=== PATIENT | male | born 1965 | race Caucasian/White ===

== ENCOUNTER 2019-06-01 14:16 | Emergency (ER) | payer OTHER ==
--- NOTE | 2019-06-01 15:02 | EDM.PDOC ---
ED HPI GENERAL MEDICAL PROBLEM - General Chief Complaint: Head Injury Stated Complaint: HEAD INJURY Time Seen by Provider: 06/01/19 15:02 Source of Information: Reports: Patient History Limitations: Reports: No Limitations - History of Present Illness INITIAL COMMENTS - FREE TEXT/NARRATIVE: HISTORY AND PHYSICAL: History of present illness: Patient is a 54-year-old male presents to the ED of head injury. He states that yesterday he was getting into his pickup when he slipped and fell backwards hitting the back of his head. He did not lose consciousness but states it is "pretty close to passing out." He denies any vomiting or visual changes or blurriness. He reports that he has been dizzy today. He also notes some pain in his ribs. He is uncertain if he had been but states they're painful today. He denies any anterior chest pain or shortness of breath. Review of systems: As per history of present illness and below otherwise all systems reviewed and negative. Past medical history: As per history of present illness and as reviewed below otherwise noncontributory. Surgical history: As per history of present illness and as reviewed below otherwise noncontributory. Social history: No reported history of drug or alcohol abuse. Family history: As per history of present illness and as reviewed below otherwise noncontributory. Physical exam: General: Patient sitting comfortably in no acute distress and nontoxic appearing HEENT: Atraumatic, normocephalic, pupils reactive, negative for conjunctival pallor or scleral icterus, mucous membranes moist, throat clear, neck supple, nontender, trachea midline. No meningeal signs. Lungs: Clear to auscultation, breath sounds equal bilaterally, chest nontender. Heart: S1S2, regular, negative for clicks, rubs, or overt murmur. Abdomen: Soft, nondistended, nontender. Negative for masses or hepatosplenomegaly. Negative for costovertebral tenderness. No rigidity, rebound , guarding. Pelvis: Stable nontender. Genitourinary: Deferred. Rectal: Deferred. Extremities: Atraumatic, negative for cords or calf pain. Neurovascular unremarkable. Neuro: Awake, alert, oriented. Cranial nerves II through XII unremarkable. Cerebellum unremarkable. Motor and sensory unremarkable throughout. Exam nonfocal. Notes: Diagnostics: Head CT, x-ray of the chest Therapeutics: none Prescriptions: none Impression: Head injury, concussion Plan: Tylenol or motrin as needed Follow up with primary care provider Return to ED as needed as discussed Definitive disposition and diagnosis as appropriate pending reevaluation and review of above. - Related Data Allergies Allergy/AdvReac Type Severity Reaction Status Date / Time shellfish derived Allergy Vomiting Verified 06/01/19 15:02 Home Meds: Home Meds Losartan [Cozaar] 100 mg PO DAILY 09/15/18 [History] Omeprazole 20 mg PO DAILY 09/15/18 [History] atorvaSTATin Calcium [Atorvastatin Calcium] 40 mg PO DAILY 09/15/18 [History] metFORMIN HCl [Metformin HCl] 1,000 mg PO DAILY 09/15/18 [History] glipiZIDE [Glucotrol] 5 mg PO DAILY 06/01/19 [History] Past Medical History HEENT History: Reports: Impaired Vision Other HEENT History: wears glasses Cardiovascular History: Reports: High Cholesterol, Hypertension Respiratory History: Reports: Asthma Endocrine/Metabolic History: Reports: Diabetes, Type II - Past Surgical History HEENT Surgical History: Reports: Adenoidectomy, Tonsillectomy GI Surgical History: Reports: Appendectomy, Colon, Colonoscopy, Colostomy ED ROS GENERAL - Review of Systems Review Of Systems: ROS reveals no pertinent complaints other than HPI. ED EXAM, HEAD INJURY - Physical Exam Exam: See Below (see dictation) Course - Vital Signs Last Recorded V/S: Last Vital Signs Temp 97.0 F 06/01/19 15:04 Pulse 77 06/01/19 15:04 Resp 18 06/01/19 15:04 BP 165/105 H 06/01/19 15:04 Pulse Ox 96 06/01/19 15:04 Departure - Departure Time of Disposition: 16:25 Disposition: Home, Self-Care 01 Condition: Good Clinical Impression: Head injury, Concussion - Discharge Information Referrals: PCP,Unknown [Primary Care Provider] - Forms: ED Department Discharge Additional Instructions: The following information is given to patients seen in the emergency department who are being discharged to home. This information is to outline your options for follow-up care. We provide all patients seen in our emergency department with a follow-up referral. The need for follow-up, as well as the timing and circumstances, are variable depending upon the specifics of your emergency department visit. If you don't have a primary care physician on staff, we will provide you with a referral. We always advise you to contact your personal physician following an emergency department visit to inform them of the circumstance of the visit and for follow-up with them and/or the need for any referrals to a consulting specialist. The emergency department will also refer you to a specialist when appropriate. This referral assures that you have the opportunity for follow-up care with a specialist. All of these measure are taken in an effort to provide you with optimal care, which includes your follow-up. Under all circumstances we always encourage you to contact your private physician who remains a resource for coordinating your care. When calling for follow-up care, please make the office aware that this follow-up is from your recent emergency room visit. If for any reason you are refused follow-up, please contact the Emergency Department at and asked to speak to the emergency department charge nurse. Primary Care [address] [place] [id number] [address] Tylenol or motrin as needed Follow up with primary care provider Return to ED as needed as discussed
--- NOTE | 2019-06-01 16:17 | CR ---
INDICATION: Chest wall pain after fall. COMPARISON: None available. TECHNIQUE: The right ribs were examined with AP, shallow oblique along with AP and oblique inferior spot views along with a PA view of the chest for a total of 5 views. FINDINGS: There is no sign of abnormality of the ribs, with no sign of fracture or destructive lesion. The lungs are clear and the heart and mediastinum are normal in appearance. IMPRESSION: Normal right ribs and PA chest. Dictated by Nilo Welch MD @ Jun 01 2019 4:10PM Signed by Dr. Nilo Welch @ Jun 01 2019 4:16PM
--- NOTE | 2019-06-01 16:23 | CT ---
INDICATION: Injury. Dizziness TECHNIQUE: CT head without contrast. COMPARISON: None available FINDINGS: The ventricles and sulci are within normal limits for the patient`s age. There is no mass effect or midline shift. There is no loss of hernandez-white differentiation. There is no evidence of an acute intracranial hemorrhage. No acute calvarial fracture is seen. There is mild superior posterior scalp swelling. There is paranasal sinus mucosal thickening. The right mastoid air cells are hypoplastic. The left mastoid air cells are clear. The visualized orbits are within limits. IMPRESSION: No evidence of an acute intracranial hemorrhage, mass effect or loss of hernandez-white differentiation. Paranasal sinus disease. Dictated by Shaun Bob MD @ 06/01/2019 4:18:38 PM Please note that all CT scans at this facility use dose modulation, iterative reconstruction, and/or weight-based dosing when appropriate to reduce radiation dose to as low as reasonably achievable. Dictated by: Shaun Bob MD @ 06/01/2019 16:21:49 (Electronically Signed)
== END 2019-06-01 16:41 | disposition home or self-care (01) ==
LOC: MW.ED 14:16
DX: S06.0X0A Concussion without loss of consciousness, initial encounter (principal); E11.9 Type 2 diabetes mellitus without complications; I10 Essential (primary) hypertension; E78.00 Pure hypercholesterolemia, unspecified; Z91.013 Allergy to seafood; Z79.899 Other long term (current) drug therapy; Z79.84 Long term (current) use of oral hypoglycemic drugs; W01.0XXA Fall on same level from slipping, tripping and stumbling without subsequent striking against object, initial encounter
CPT/HCPCS: 70450; 70450-26; 71101-26-RT; 71101-RT; 99283; 99284-25

== ENCOUNTER 2021-01-18 06:33 | Day surgery (SDC) | payer BC ==
[~2021-01-18 06:33] MED LIST: Acetaminophen 1,000 MG in Premix Bag 1 BAG IV ONE; Lactated Ringers 1,000 ML IV SCH; Pregabalin 200 MG Cap PO SCH; ceFAZolin 2 GM in Premix Bag 1 BAG IV ONE
[2021-01-18] MEDS ORDERED: Sugammadex Sodium 200 MG/2 ML VIAL ONE (07:11)
[2021-01-18] MEDS ORDERED: Propofol 200 MG/20 ML SDV ONE ×2 (07:13→09:22)
[2021-01-18] MEDS ORDERED: fentaNYL 100 MCG/2 ML SDV ONE ×2 (07:13→08:33)
[2021-01-18] MEDS ORDERED: Midazolam 1 MG/ML 2 ML SDV ONE (07:13)
[2021-01-18] MEDS ORDERED: Ondansetron 4 MG/2 ML SDV ONE (07:13)
[2021-01-18] MEDS ORDERED: Rocuronium Bromide 50 MG/5 ML Syringe ONE (07:14)
[2021-01-18] MEDS ORDERED: Dexamethasone 4 MG/ML 5 ML MDV ONE (07:14)
[2021-01-18] MEDS ORDERED: Ketorolac 30 MG/ML SDV ONE (07:14)
[2021-01-18] MEDS ORDERED: Glycopyrrolate 0.2 MG/ML SDV ONE (07:14)
[2021-01-18] MEDS ORDERED: Bupivacaine 25%/EPINEPHrine/PF 0 ML ONE (07:21)
[2021-01-18] MEDS ORDERED: Octyl 2-Cyanoacrylate 1 Tube ONE ×2 (07:21→09:59)
[2021-01-18] MEDS ORDERED: Bupivacaine 0.5% 30 ML SDV ONE (07:21)
[2021-01-18] MEDS ORDERED: Morphine 10 MG/ML Syringe ONE (07:22)
--- NOTE | 2021-01-18 07:29 | PCM.PREANE ---
Preanesthetic Assessment - Anesthesia/Transfusion/Family Hx Anesthesia History: Prior Anesthesia Without Reaction Family History of Anesthesia Reaction: No Transfusion History: No Prior Transfusion(s) - Review of Systems General: No Symptoms Pulmonary: No Symptoms Cardiovascular: No Symptoms Gastrointestinal: No Symptoms Neurological: No Symptoms Other: Reports: None - Physical Assessment NPO Status Date: 01/18/21 NPO Status Time: 00:05 Height: 5 ft 5 in Weight: 201 lb ASA Class: 2 Mental Status: Alert & Oriented x3 Airway Class: Mallampati = 3 Dentition: Reports: Normal Dentition ROM/Head Extension: Full Lungs: Clear to Auscultation, Normal Respiratory Effort Cardiovascular: Regular Rate, Regular Rhythm - Allergies Allergies/Adverse Reactions: Allergies Allergy/AdvReac Type Severity Reaction Status Date / Time shellfish derived Allergy Vomiting Verified 01/12/21 08:05 - Anesthesia Plan Pre-Op Medication Ordered: None - Acknowledgements Anesthesia Type Planned: General Anesthesia Pt an Appropriate Candidate for the Planned Anesthesia: Yes Alternatives and Risks of Anesthesia Discussed w Pt/Guardian: Yes Pt/Guardian Understands and Agrees with Anesthesia Plan: Yes Additional Comments: npo after mn htn no cv problems elisabet w cpap aodtob quit 1994 etoh occ par no questions PreAnesthesia Questionnaire HEENT History: Reports: Impaired Vision Other HEENT History: wears glasses Cardiovascular History: Reports: High Cholesterol, Hypertension Respiratory History: Reports: Sleep Apnea Other Respiratory History: uses CPAP Gastrointestinal History: Reports: GERD Genitourinary History: Reports: None Musculoskeletal History: Reports: Gout Neurological History: Reports: None Psychiatric History: Reports: None Endocrine/Metabolic History: Reports: Diabetes, Type II, Obesity/BMI 30+ Hematologic History: Reports: None Immunologic History: Reports: None Oncologic (Cancer) History: Reports: None Dermatologic History: Reports: None - Infectious Disease History Infectious Disease History: Reports: Chicken Pox - Past Surgical History Head Surgeries/Procedures: Reports: None HEENT Surgical History: Reports: Adenoidectomy, Tonsillectomy Cardiovascular Surgical History: Reports: None Respiratory Surgical History: Reports: None GI Surgical History: Reports: Appendectomy, Colon, Colonoscopy, Colostomy Other GI Surgeries/Procedures: hx colectomy for ruptured diverticulum, colostomy closure Male Surgical History: Reports: None Endocrine Surgical History: Reports: None Neurological Surgical History: Reports: None Musculoskeletal Surgical History: Reports: Arthroscopic Knee Oncologic Surgical History: Reports: None Dermatological Surgical History: Reports: None - SUBSTANCE USE Tobacco Use Status *Q: Former Tobacco User Tobacco Use Within Last Twelve Months: No - HOME MEDS Home Medications: Home Meds Losartan [Cozaar] 100 mg PO DAILY 09/15/18 [History] Omeprazole 20 mg PO DAILY 09/15/18 [History] atorvaSTATin Calcium [Atorvastatin Calcium] 40 mg PO DAILY 09/15/18 [History] metFORMIN HCl [Metformin HCl] 1,000 mg PO BIDMEALS 09/15/18 [History] Ergocalciferol (Vitamin D2) [Vitamin D2] 50,000 units PO ASDIRECTED 01/12/21 [History] Fenofibrate,Micronized [Fenofibrate] 134 mg PO DAILY 01/12/21 [History] amLODIPine Besylate [Amlodipine Besylate] 5 mg PO DAILY 01/12/21 [History] - CURRENT (IN HOUSE) MEDS Current Meds: Current Medications Lactated Ringer's (Ringers, Lactated) 1,000 mls @ 125 mls/hr IV ASDIRECTED TREVON Pregabalin (Pregabalin 200 Mg Cap) 150 mg PO DAILY [facility] Discontinued Medications Bupivacaine HCl (Bupivacaine 0.5% 30 Ml Sdv) Confirm Administered Dose 30 ml .ROUTE .STK-MED ONE Stop: 01/18/21 07:22 Dexamethasone (Dexamethasone 4 Mg/Ml 5 Ml Mdv) Confirm Administered Dose 20 mg .ROUTE .STK-MED ONE Stop: 01/18/21 07:15 Fentanyl (Fentanyl 100 Mcg/2 Ml Sdv) Confirm Administered Dose 100 mcg .ROUTE .STK-MED ONE Stop: 01/18/21 07:14 Glycopyrrolate (Glycopyrrolate 0.2 Mg/Ml Sdv) Confirm Administered Dose 0.2 mg .ROUTE .STK-MED ONE Stop: 01/18/21 07:15 Cefazolin Sodium/Dextrose 2 gm (/ Premix) 50 mls @ 100 mls/hr IV ONETIME ONE Stop: 01/16/21 10:52 Acetaminophen 1,000 mg/ Premix 100 mls @ 400 mls/hr IV NOW ONE Stop: 01/16/21 10:41 Acetaminophen (Ofirmev 1000 Mg/100 Ml) Confirm Administered Dose 100 mls @ as directed .ROUTE .STK-MED ONE Stop: 01/18/21 07:12 Bupivacaine HCl/Epinephrine Bitart (Sensorc Mpf 0.25%-Epi 1:[id number]) Confirm Administered Dose 30 mls @ as directed .ROUTE .STK-MED ONE Stop: 01/18/21 07:22 Ketorolac Tromethamine (Ketorolac 30 Mg/Ml Sdv) Confirm Administered Dose 30 mg .ROUTE .STK-MED ONE Stop: 01/18/21 07:15 Lidocaine HCl (Lidocaine 1% 5 Ml Sdv) Confirm Administered Dose 5 ml .ROUTE . STK-MED ONE Stop: 01/18/21 07:14 Midazolam HCl (Midazolam 1 Mg/Ml 2 Ml Sdv) Confirm Administered Dose 2 mg .ROUTE .STK-MED ONE Stop: 01/18/21 07:14 Morphine Sulfate (Morphine 10 Mg/Ml Syringe) Confirm Administered Dose 10 mg .ROUTE .STK-MED ONE Stop: 01/18/21 07:23 Octyl Cyanoacrylate (Octyl 2-Cyanoacrylate 1 Tube) Confirm Administered Dose 1 applic .ROUTE .STK-MED ONE Stop: 01/18/21 07:22 Ondansetron HCl (Ondansetron 4 Mg/2 Ml Sdv) Confirm Administered Dose 4 mg .ROUTE .STK-MED ONE Stop: 01/18/21 07:14 Propofol (Propofol 200 Mg/20 Ml Sdv) Confirm Administered Dose 600 mg .ROUTE .STK-MED ONE Stop: 01/18/21 07:14 Rocuronium [place] (Rocuronium [place] 50 Mg/5 Ml Syringe) Confirm Administered Dose 100 mg .ROUTE .STK-MED ONE Stop: 01/18/21 07:15 Sugammadex Sodium (Sugammadex Sodium 200 Mg/2 Ml Vial) Confirm Administered Dose 200 mg .ROUTE .STK-MED ONE Stop: 01/18/21 07:12
[2021-01-18] MEDS ORDERED: Pregabalin 75 MG Cap ONE (07:33)
[2021-01-18] MEDS ORDERED: Pregabalin 75 MG Cap PO SCH (07:34)
[2021-01-18] MEDS ORDERED: Pregabalin 75 MG Cap PO ONE (07:45)
[2021-01-18] MEDS ORDERED: ePHEDrine 50 MG/ML SDV ONE (08:33)
[2021-01-18] MEDS ORDERED: Desflurane 240 ML Bottle ONE (09:38)
--- NOTE | 2021-01-18 10:21 | PCM.OPNOTE ---
- General Post-Op/Procedure Note Date of Surgery/Procedure: 01/18/21 Operative Procedure(s): Laparoscopic incisional hernia repair. lysis of adhesions Findings: Incisional hernia - bangladeshi cheese adhesions dictation number [id number] Pre Op Diagnosis: Incisional hernia Post-Op Diagnosis: Incisional hernia Primary Surgeon: Wu Kan Pathology: none EBL in mLs: 10 Complications: None Condition: Good
[2021-01-18] MEDS ORDERED: Ondansetron 4 MG/2 ML SDV IVPUSH PRN (10:45)
[2021-01-18] MEDS ORDERED: HYDROmorphone 1 MG/ML Syringe IVPUSH ONE ×2 (10:45→11:15)
[2021-01-18] MEDS ORDERED: Morphine 4 MG/ML Syringe IVPUSH ONE (10:45)
[2021-01-18] MEDS: HYDROmorphone 2 MG/ML Syringe IVPUSH PRN ×2 (10:50→11:05)
--- NOTE | 2021-01-18 11:57 | PCM.POSTAN ---
POST ANESTHESIA ASSESSMENT - MENTAL STATUS Mental Status: Alert, Oriented - VITAL SIGNS Vital Signs: Last Vital Signs Temp 96.1 F L 01/18/21 11:51 Pulse 62 01/18/21 11:51 Resp 13 01/18/21 11:51 BP 104/57 L 01/18/21 11:51 Pulse Ox 91 L 01/18/21 11:51 - RESPIRATORY Respiratory Status: Respiratory Rate WNL, Airway Patent, O2 Saturation Stable - CARDIOVASCULAR CV Status: Pulse Rate WNL, Blood Pressure Stable - GASTROINTESTINAL GI Status: No Symptoms - PAIN Pain Score: 4 Free Text/Narrative:: pain controlled with dilaudad, morphine to /10 Sp02 on floor with cpap mask for overnight stay - POST OP HYDRATION Hydration Status: Adequate & Stable
--- NOTE | 2021-01-18 13:00 | PCM48HPAN ---
Post Anesthesia Note - EVALUATION WITHIN 48HRS OF ANESTHETIC Vital Signs in Normal Range: Yes Patient Participated in Evaluation: Yes Respiratory Function Stable: Yes Airway Patent: Yes Cardiovascular Function Stable: Yes Hydration Status Stable: Yes Pain Control Satisfactory: Yes Nausea and Vomiting Control Satisfactory: Yes Mental Status Recovered: Yes Vital Signs: Last Vital Signs Temp 96.1 F L 01/18/21 11:51 Pulse 62 01/18/21 11:51 Resp 13 01/18/21 11:51 BP 104/57 L 01/18/21 11:51 Pulse Ox 91 L 01/18/21 11:51
[2021-01-18] MEDS ORDERED: HYDROmorphone 1 MG/ML Syringe IVPUSH PRN (14:15)
--- NOTE | 2021-01-18 15:39 | OR ---
SURGEON: BRIDGET WHITEHEAD MD DATE OF PROCEDURE: 01/18/2021 PREOPERATIVE DIAGNOSIS: Incisional hernia. POSTOPERATIVE DIAGNOSIS: Incisional hernia. PROCEDURE PERFORMED: Laparoscopic lysis of adhesions along with laparoscopic incisional hernia repair with a mesh. PRIMARY SURGEON: Bridget Whitehead MD ANESTHESIA: General. ESTIMATED BLOOD LOSS: 10 mL. COMPLICATIONS: None. REASON FOR PROCEDURE: The patient is a pleasant 55-year-old gentleman who has an incisional hernia in his upper midline incision. The patient has had multiple surgeries in the past. He did have perforated diverticulitis with Kavita procedure, then takedown. I again went over with the patient risks, goals, alternatives of surgery. Risks include, but are not limited to bleeding, infection, mesh infection, recurrence, injury to underlying structures such as bowel, chronic pain, nerve entrapment, mesh migration. The patient understands and wishes to proceed. OPERATION NARRATIVE: The patient was brought back to the OR. He was prepped and draped in the usual sterile fashion. SCDs placed. Almodovar catheter placed. Preoperative antibiotics were given and anesthesia was provided by the Anesthesia team. After time-out was performed, an incision was made in the subcostal left mid margin. This was made down to the fascia. Now, a 5 mm trocar was placed under direct visualization with a scope in it into the abdominal cavity. Insufflation was began. The pneumoperitoneum was established and the abdomen was inspected. The patient did have quite a bit of adhesions from his prior surgeries. Now, another 5 mm trocar was placed in the more lateral right mid abdomen and a 12 was placed in the right lower abdomen under direct visualization. Now, the adhesions were carefully taken down with a combination of blunt dissection and Harmonic scalpel, making sure not to injure any underlying bowel. Adhesions were mainly omental though. The hernia was also reduced. The falciform ligament was taken down. I did get most of the adhesions down. Now, attention was brought to the hernia. The hernia actually was more of a Filipino cheese defect and had multiple small openings. It was a little bit to the right side of his abdomen. Total hernia size was about 7.5 cm x 5. Now, the hernia defect was closed with some 0 Vicryl in several [id number] stitches. The fascial defect did come together nicely and close. Now, a 15 x [address] mesh by [employer] was placed along with the Echo 2 positioning system. The mesh was then elevated using the Echo 2 positioning system. It was then secured in place with absorbable Bard tacks circumferentially in sort of a double crown technique. The Echo 2 positioning device was then removed. It appeared to be removed in one piece. Now, transfascial sutures were placed with 0 Vicryl in the four quadrants, one in the middle of the mesh. Mesh appeared to lay in position, had good covering over all the defects. There was good hemostasis. It was inspected. Again, most of the adhesions to the abdominal wall were down. Now, the omentum was pulled over the small bowel. The 12 mm trocar was removed and the fascial defect was closed with 0 Vicryl. Now, the pneumoperitoneum was released under direct visualization. The two 5 mm trocars were now removed. Now, the trocar sites were again injected with local and closed with 4-0 Monocryl and Dermabond. All the smaller incision sites for the transfascial sutures were also closed with Dermabond. At the end of the case, sponge and needle counts were correct. The patient was transferred to recovery room in stable condition. The patient will be kept outpatient to spend the night because of sleep apnea and he says his machine is not working well. JOJO / AMALIA /[id number]
[2021-01-18] MEDS: Acetaminophen/HYDROcodone 325-5 MG Tab PO PRN ×2 (16:33→20:23)
[2021-01-18] MEDS: metFORMIN 500 MG Tab PO SCH (16:34)
[2021-01-19] MEDS: Acetaminophen/HYDROcodone 325-5 MG Tab PO PRN (06:36)
[2021-01-19] MEDS ORDERED: Omeprazole 20 MG Cap.CR PO SCH (07:30)
[2021-01-19] MEDS: metFORMIN 500 MG Tab PO SCH (08:30)
[2021-01-19] MEDS ORDERED: amLODIPine 5 MG Tab PO SCH (09:00)
[2021-01-19] MEDS ORDERED: atorvaSTATin 40 MG Tab PO SCH (09:00)
[2021-01-19] MEDS ORDERED: Losartan 50 MG Tab PO SCH (09:00)
--- NOTE | 2021-01-19 11:50 | PN ---
SUBJECTIVE: The patient is resting comfortably in his bed. He has no complaints. The patient had a good night. He is tolerating diet. He has been up and ambulating. The patient said his pain has been well controlled. Just having some pain when he gets up and down out of bed, though he has been walking the collier well. Nurses report no issues. OBJECTIVE: ABDOMEN: Soft and nondistended. There is some mild tenderness to palpation, as would be expected with, maybe incisional. ASSESSMENT AND PLAN: This is a pleasant 55-year-old gentleman, status post laparoscopic incisional hernia repair, doing well. Still in same-day surgery, kept because of his history of sleep apnea and a poorly functional CPAP device at home. Actually, the patient is doing well, will be discharged home today. I did again go over with the patient the discharge plan. He may shower today. He should come back if he develops any increased pain, discomfort, further erythema at the incision sites. The patient should again take it easy for at least the next week with no heavy lifting or strenuous activity for next 6 weeks. All the patient's questions were answered. JOJO / AMALIA /[id number]
== END 2021-01-19 09:17 | disposition home or self-care (01) ==
LOC: MW.SDS 06:33 → MW.MS 10:45 → MW.SDS 01-19 09:17
PROVIDERS: ATTEND Surgery
DX: K43.2 Incisional hernia without obstruction or gangrene (principal); K66.0 Peritoneal adhesions (postprocedural) (postinfection); I10 Essential (primary) hypertension; E11.9 Type 2 diabetes mellitus without complications; E78.1 Pure hyperglyceridemia; K21.9 Gastro-esophageal reflux disease without esophagitis; G47.33 Obstructive sleep apnea (adult) (pediatric); E78.00 Pure hypercholesterolemia, unspecified; E66.9 Obesity, unspecified; Z79.899 Other long term (current) drug therapy; Z91.013 Allergy to seafood; Z79.84 Long term (current) use of oral hypoglycemic drugs; Z90.49 Acquired absence of other specified parts of digestive tract; Z98.890 Other specified postprocedural states; Z87.891 Personal history of nicotine dependence; Z68.33 Body mass index [BMI] 33.0-33.9, adult
CPT/HCPCS: 49654; 82962; A9270; J0131; J1100; J1170; J1885; J2250; J2270; J2704; J3010; J3490; J7120; 00790; J2405

== ENCOUNTER 2021-05-23 03:44 | Emergency (ER) | payer BC ==
[2021-05-23] MEDS ORDERED: Sodium Chloride 0.9% 2.5 ML Syringe FLUSH PRN (04:04)
[2021-05-23] MEDS ORDERED: Sodium Chloride 0.9% 10 ML Syringe FLUSH PRN (04:04)
[2021-05-23] MEDS ORDERED: HYDROmorphone 1 MG/ML Syringe IVPUSH ONE ×2 (04:05→05:18)
[2021-05-23] MEDS ORDERED: Ondansetron 4 MG/2 ML SDV IVPUSH ONE (04:05)
--- NOTE | 2021-05-23 04:09 | EDM.PDOC ---
ED HPI GENERAL MEDICAL PROBLEM - General Chief Complaint: Genitourinary Problem Stated Complaint: SEVERE GROIN PAIN Time Seen by Provider: 05/23/21 03:46 - History of Present Illness INITIAL COMMENTS - FREE TEXT/NARRATIVE: 56-year-old male presents with sudden onset severe right groin pain radiating into the testicle. It started at 3 AM when he tried to urinate. No fevers no flank pain no abdominal pain some nausea but no vomiting. Symptoms constant and severe without exacerbating or alleviating factors or other associated symptoms no prior history of similar episodes. No history of recent trauma. right inguinal area Pain Score (Numeric/FACES): 8 - Related Data Allergies Allergy/AdvReac Type Severity Reaction Status Date / Time shellfish derived Allergy Vomiting Verified 05/23/21 04:03 Home Meds: Home Meds Losartan [Cozaar] 100 mg PO DAILY 09/15/18 [History] Omeprazole 20 mg PO DAILY 09/15/18 [History] atorvaSTATin Calcium [Atorvastatin Calcium] 40 mg PO DAILY 09/15/18 [History] metFORMIN HCl [Metformin HCl] 1,000 mg PO BIDMEALS 09/15/18 [History] Ergocalciferol (Vitamin D2) [Vitamin D2] 50,000 units PO ASDIRECTED 01/12/21 [History] Fenofibrate,Micronized [Fenofibrate] 134 mg PO DAILY 01/12/21 [History] amLODIPine Besylate [Amlodipine Besylate] 5 mg PO DAILY 01/12/21 [History] Acetaminophen/HYDROcodone [[facility] 325-5 MG] 1 - 2 tab PO Q6H PRN #25 tablet 01/19/21 [Rx] Tamsulosin HCl [Flomax] 0.4 mg PO DAILY #14 cap.er.24h 05/23/21 [Rx] oxyCODONE HCl/Acetaminophen [Percocet 10-325 mg Tablet] 1 each PO TID PRN 4 Days #12 tablet 05/23/21 [Rx] Past Medical History HEENT History: Reports: Impaired Vision Other HEENT History: wears glasses Cardiovascular History: Reports: High Cholesterol, Hypertension Respiratory History: Reports: Sleep Apnea Other Respiratory History: uses CPAP Gastrointestinal History: Reports: GERD Genitourinary History: Reports: None Musculoskeletal History: Reports: Gout Neurological History: Reports: None Psychiatric History: Reports: None Endocrine/Metabolic History: Reports: Diabetes, Type II, Obesity/BMI 30+ Hematologic History: Reports: None Immunologic History: Reports: None Oncologic (Cancer) History: Reports: None Dermatologic History: Reports: None - Infectious Disease History Infectious Disease History: Reports: Chicken Pox - Past Surgical History Head Surgeries/Procedures: Reports: None HEENT Surgical History: Reports: Adenoidectomy, Tonsillectomy Cardiovascular Surgical History: Reports: None Respiratory Surgical History: Reports: None GI Surgical History: Reports: Appendectomy, Colon, Colonoscopy, Colostomy Other GI Surgeries/Procedures: hx colectomy for ruptured diverticulum, colostomy closure Male Surgical History: Reports: None Endocrine Surgical History: Reports: None Neurological Surgical History: Reports: None Musculoskeletal Surgical History: Reports: Arthroscopic Knee Oncologic Surgical History: Reports: None Dermatological Surgical History: Reports: None Social & Family History - Caffeine Use Caffeine Use: Reports: Coffee ED ROS GENERAL - Review of Systems Review Of Systems: See Below Free Text/Narrative/Comment: General: No fever. Skin: No rash. Eyes: No vision problems. ENT: No sore throat. Neck: No neck stiffness. Respiratory: No shortness of breath. Cardiac: No chest pain. Gastrointestinal: No vomiting or abdominal pain. Urinary: Per HPI Musculoskeletal: No myalgias/arthralgias. Neurologic: No headache. ED EXAM, GENERAL - Physical Exam Exam: See Below Free Text/Narrative:: General Appearance: Nontoxic but very uncomfortable mildly diaphoretic HEENT: Normocephalic/atraumatic, sclera anicteric, mucous membranes moist Neck: Normal range of motion Chest and Lungs: Bilateral breath sounds, clear to auscultation Cardiovascular: Regular rate and rhythm, no murmur Abdomen: Soft, non-tender Back: Normal : Bilaterally descended and nontender testicles normal glans and penile shaft no palpable inguinal masses Musculoskeletal: No edema or tenderness Neurologic: Awake, alert, no obvious deficits, moving all extremities Psychiatric: Appropriate, cooperative Course - Vital Signs Last Recorded V/S: Last Vital Signs Temp 96.5 F L 05/23/21 03:55 Pulse 58 L 05/23/21 05:00 Resp 18 05/23/21 05:00 BP 127/74 05/23/21 05:00 Pulse Ox 96 05/23/21 05:00 - Orders/Labs/Meds Orders: Active Orders 24 hr Category Date Time Status Sodium Chloride 0.9% [Saline Flush] Med 05/23/21 04:04 Active 10 ml FLUSH ASDIRECTED PRN Sodium Chloride 0.9% [Saline Flush] Med 05/23/21 04:04 Active 2.5 ml FLUSH ASDIRECTED PRN Saline Lock Insert [OM.PC] Stat Oth 05/23/21 04:04 Ordered Medication Orders Sodium Chloride (Sodium Chloride 0.9% 10 Ml Syringe) 10 ml FLUSH ASDIRECTED PRN PRN Reason: Keep Vein Open Sodium Chloride (Sodium Chloride 0.9% 2.5 Ml Syringe) 2.5 ml FLUSH ASDIRECTED PRN PRN Reason: Keep Vein Open Labs: Laboratory Tests 05/23/21 05/23/21 05/23/21 Range/Units 04:00 04:00 05:45 WBC 11.47 H (4.0-11.0) K/uL RBC 4.60 (4.50-5.90) M/uL Hgb 14.5 (13.0-17.0) g/dL Hct 42.0 (38.0-50.0) % MCV 91.3 (80.0-98.0) fL MCH 31.5 (27.0-32.0) pg MCHC 34.5 (31.0-37.0) g/dL RDW Std Deviation 44.1 (28.0-62.0) fl RDW Coeff of Adriana 13 (11.0-15.0) % Plt Count 313 (150-400) K/uL MPV 10.10 (7.40-12.00) fL Neut % (Auto) 35.2 L (48.0-80.0) % Lymph % (Auto) 43.1 H (16.0-40.0) % [place] % (Auto) 9.5 (0.0-15.0) % Eos % (Auto) 11.4 H (0.0-7.0) % Baso % (Auto) 0.8 (0.0-1.5) % Neut # (Auto) 4.0 (1.4-5.7) K/uL Lymph # (Auto) 4.9 H (0.6-2.4) K/uL [place] # (Auto) 1.1 H (0.0-0.8) K/uL Eos # (Auto) 1.3 H (0.0-0.7) K/uL Baso # (Auto) 0.1 (0.0-0.1) K/uL Nucleated RBC % 0.0 /100WBC Nucleated RBCs # 0 K/uL Sodium 141 (136-148) mmol/L Potassium 3.6 (3.5-5.1) mmol/L Chloride 106 (98-107) mmol/L Carbon Dioxide 24.1 (21.0-32.0) mmol/L BUN 19 H (7.0-18.0) mg/dL Creatinine 1.5 H (0.8-1.3) mg/dL Est Cr Clr Drug Dosing 47.26 mL/min Estimated GFR (MDRD) 48.2 ml/min Glucose 165 H (74-106) mg/dL Calcium 9.2 (8.5-10.1) mg/dL Total Bilirubin 0.3 (0.2-1.0) mg/dL AST 27 (15-37) IU/L ALT 63 (14-63) IU/L Alkaline Phosphatase 54 (46-116) U/L Total Protein 7.0 (6.4-8.2) g/dL Albumin 4.1 (3.4-5.0) g/dL Globulin 2.9 (2.6-4.0) g/dL Albumin/Globulin Ratio 1.4 (0.9-1.6) Urine Color YELLOW Urine Appearance CLEAR Urine pH 5.0 (5.0-8.0) Ur Specific [place] >= 1.030 (1.001-1.035) Urine Protein 30 H (NEGATIVE) mg/dL Urine Glucose (UA) NEGATIVE (NEGATIVE) mg/dL Urine Ketones NEGATIVE (NEGATIVE) mg/dL Urine Occult Blood NEGATIVE (NEGATIVE) Urine Nitrite NEGATIVE (NEGATIVE) Urine Bilirubin SMALL H (NEGATIVE) Urine Urobilinogen 0.2 (<2.0) EU/dL Ur Leukocyte Esterase NEGATIVE (NEGATIVE) Urine RBC 0-2 (0-2/HPF) Urine WBC 0-2 (0-5/HPF) Ur Epithelial Cells FEW (NONE-FEW) Urine Bacteria FEW (NEGATIVE) Urine Mucus LIGHT (NONE-MOD) Meds: Medications Generic Name Dose Route Start Last Admin Trade Name Freq PRN Reason Stop Dose Admin Sodium Chloride 10 ml 05/23/21 04:04 Sodium Chloride 0.9% 10 Ml Syringe FLUSH ASDIRECTED PRN Keep Vein Open Sodium Chloride 2.5 ml 05/23/21 04:04 Sodium Chloride 0.9% 2.5 Ml Syringe FLUSH ASDIRECTED PRN Keep Vein Open Discontinued Medications Generic Name Dose Route Start Last Admin Trade Name Freq PRN Reason Stop Dose Admin Hydromorphone HCl 1 mg 05/23/21 04:05 05/23/21 04:18 Hydromorphone 1 Mg/Ml Syringe IVPUSH 05/23/21 04:06 1 mg ONETIME ONE Administration Hydromorphone HCl 1 mg 05/23/21 05:18 05/23/21 05:23 Hydromorphone 1 Mg/Ml Syringe IVPUSH 05/23/21 05:19 1 mg ONETIME ONE Administration Ondansetron HCl 4 mg 05/23/21 04:05 05/23/21 04:18 Ondansetron 4 Mg/2 Ml Sdv IVPUSH 05/23/21 04:06 4 mg ONETIME ONE Administration Oxycodone/Acetaminophen 1 tab 05/23/21 05:51 05/23/21 05:59 Acetaminophen/Oxycodone 325-10 Mg Tab PO 05/23/21 05:52 1 tab ONETIME ONE Administration Tamsulosin HCl 0.4 mg 05/23/21 05:53 05/23/21 06:00 Tamsulosin 0.4 Mg Cap.Er PO 05/23/21 05:54 0.4 mg ONETIME ONE Administration Departure - Departure Time of Disposition: 06:04 Disposition: Home, Self-Care 01 Condition: Good Clinical Impression: Kidney stone - Discharge Information *PRESCRIPTION DRUG MONITORING PROGRAM REVIEWED*: Yes *COPY OF PRESCRIPTION DRUG MONITORING REPORT IN PATIENT CAROL: No Prescriptions: Tamsulosin HCl [Flomax] 0.4 mg PO DAILY #14 cap.er.24h oxyCODONE HCl/Acetaminophen [Percocet 10-325 mg Tablet] 1 each PO TID PRN 4 Days #12 tablet PRN Reason: Pain Instructions: Renal Colic Forms: ED Department Discharge Additional Instructions: You can take the pain medicine as you need to for pain. Because of the location of the stone which should pass on its own over the next day or so. If your pain becomes intolerable and not controlled with pain medication please return to the ER. You have multiple stones in your urinary system and for this reason I think it would be worth you following up with a urologist. They are currently no practicing urologist in [place]. The nearest urologist is based out [facility]. If you develop a fever or severe pain that is not controlled by the pain medication please return to the ER. Sepsis Event Note (ED) - Evaluation Sepsis Screening Result: No Definite Risk - Focused Exam Vital Signs: Vital Signs Temp Pulse Resp BP Pulse Ox 05/23/21 05:00 58 L 18 127/74 96 05/23/21 03:55 96.5 F L 61 18 150/90 H 97 - My Orders Last 24 Hours: My Active Orders 05/23/21 04:04 Sodium Chloride 0.9% [Saline Flush] 10 ml FLUSH ASDIRECTED PRN Sodium Chloride 0.9% [Saline Flush] 2.5 ml FLUSH ASDIRECTED PRN Saline Lock Insert [OM.PC] Stat - Assessment/Plan Last 24 Hours: My Active Orders 05/23/21 04:04 Sodium Chloride 0.9% [Saline Flush] 10 ml FLUSH ASDIRECTED PRN Sodium Chloride 0.9% [Saline Flush] 2.5 ml FLUSH ASDIRECTED PRN Saline Lock Insert [OM.PC] Stat Assessment:: 56-year-old male presenting with signs and symptoms that are most consistent with renal colic. No palpable inguinal hernias. Testicular torsion considered but the testicle itself is nontender and the patient is without a mechanism for torsion and given that we will start with Zofran Dilaudid CBC CMP and noncontrast scan to exclude renal colic. If this is unremarkable then could consider scrotal ultrasound at that time. Patient has no right lower quadrant tenderness appendicitis is felt unlikely. 0520: Patient's imaging demonstrates an obstructive right-sided ureteral stone that is partially within the urinary bladder. I do believe this is the cause of the patient's pain. Patient has some very minimal renal insufficiency so we will avoid Toradol. Patient was given another dose of Dilaudid. His pain is starting to come back. Would start the patient on Flomax given the size of the stone. However given its location the odds are good that he will pass it on his own. I encouraged him to follow-up with his primary care doctor's clinic as well as with urology. We discussed that there is currently no urologist in [place] and that the nearest urologist is based out of [place]. 0605: Sx remain controled. Pt given PO pain meds and 1st dose of flomax prior to dc. Pt will f/u with PCP.
[2021-05-23 04:33] LABS: CARBON DIOXIDE,CO2 24.1 mmol/L (21.0-32.0); POTASSIUM,K 3.6 mmol/L (3.5-5.1)
--- NOTE | 2021-05-23 05:09 | CT ---
INDICATION: Right flank pain. COMPARISON: 09/20/2020 TECHNIQUE: CT examination of the abdomen and pelvis was performed without contrast enhancement using 2.5 mm thick axial sections from the lung bases through the pubic symphysis. Oral contrast was not administered. Please note that all CT scans at this facility use dose modulation, iterative reconstruction, and/or weight-based dosing when appropriate to reduce radiation dose to as low as reasonably achievable. 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 This calculus was previously present in the right posterior area bladder and has slightly increased in size, previously measuring 11 x 8 millimeters. It was probably located in a ureterocele on the previous study. There is a tiny nonobstructive 1 millimeter calculus in the lower pole of the right kidney. There may be an additional tiny 1 millimeter nonobstructive calculus in the upper pole of the right kidney. On the left, there is a stable 1 millimeter nonobstructive calculus in the posterior interpolar region. A stable nonobstructive 2 millimeter calculus is seen in the lower pole. There is no sign of left hydronephrosis or hydroureter. There is no sign of left ureterolithiasis. In the abdomen, the liver remains low in density, representing stable fatty infiltration. There is no sign of mass. The spleen, pancreas and adrenals are normal in appearance. The unenhanced kidneys are normal in appearance. The gallbladder is normal in appearance. The abdominal aorta is normal in caliber with no sign of dilatation. There is no sign of retroperitoneal mass or adenopathy. The stomach, loops of small bowel, and colon in the abdomen are normal in appearance. The previously seen small fat containing right periumbilical hernia is no longer present and appears to have been repaired. In the pelvis, the appendix is nonvisualized, but there is no sign of an inflammatory process in the area of the appendix. There is a line of surgical wyatt in the left medial anterior mid pelvis, consistent with previous small bowel resection and anastomosis. There is no sign of a stricture. The rest of the loops of small bowel in the pelvis are normal in appearance. Again seen is a line of surgical wyatt from sigmoid resection and anastomosis. There continues to be mild collection of fecal material proximal to the staple line, suggesting a mild stricture. The prostate remains moderately enlarged and is otherwise normal in appearance. The urinary bladder is normal in appearance. There is no sign of pelvic or inguinal mass or adenopathy. There are stable small fat containing bilateral inguinal hernias. There is no sign of free air or free fluid in the abdomen or pelvis. The lung bases are clear. Again seen is minimal posterior subluxation of L1 on L2, L2 on L3, and of L3 on L4 with moderate disc degenerative disease from L1 through L4. Again seen is mild L4-5 and L5-S1 disc degenerative disease. Again seen is mild scoliosis of the lumbar spine convex towards the left. 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 CT of the abdomen shows slightly increased nonobstructive right nephrolithiasis with 2 calculi seen on the right, previously 1 calculus was present. Stable minimal nonobstructive left nephrolithiasis with 2 tiny calculi. Stable fatty infiltration of the liver. CT of the pelvis shows stable mild stricture of the mid sigmoid colon at the area of anastomosis resulting in mild stasis of fecal material proximal to the anastomotic line. Stable moderate enlargement of the prostate. Please note that all CT scans at this facility use dose modulation, iterative reconstruction, and/or weight-based dosing when appropriate to reduce radiation dose to as low as reasonably achievable. Dictated by Nilo [place] MD @ 05/23/2021 5:08:[address] Nilo [place] @ May 23 2021 5:08AM
[2021-05-23] MEDS ORDERED: Acetaminophen/oxyCODONE 325-10 MG Tab PO ONE (05:51)
[2021-05-23] MEDS ORDERED: Tamsulosin 0.4 MG Cap.ER PO ONE (05:53)
== END 2021-05-23 06:11 | disposition home or self-care (01) ==
LOC: MW.ED 03:44
DX: N13.2 Hydronephrosis with renal and ureteral calculous obstruction (principal); E78.00 Pure hypercholesterolemia, unspecified; I10 Essential (primary) hypertension; K21.9 Gastro-esophageal reflux disease without esophagitis; M10.9 Gout, unspecified; E11.9 Type 2 diabetes mellitus without complications; E66.9 Obesity, unspecified; Z68.31 Body mass index [BMI] 31.0-31.9, adult; Z91.013 Allergy to seafood; Z79.84 Long term (current) use of oral hypoglycemic drugs; Z79.899 Other long term (current) drug therapy
CPT/HCPCS: 36415; 74176; 80053; 81001; 85025; 96374; 96375; 96376; 99284; A9270; J1170; J2405

== ENCOUNTER 2022-02-21 10:37 | Emergency (ER) | payer BC ==
[2022-02-21] MEDS ORDERED: Sodium Chloride 0.9% 10 ML Syringe FLUSH PRN (10:44)
[2022-02-21] MEDS ORDERED: Sodium Chloride 0.9% 2.5 ML Syringe FLUSH PRN (10:44)
[2022-02-21] MEDS ORDERED: Sodium Chloride 0.9% 1,000 ML IV ONE ×2 (10:55→12:25)
[2022-02-21] MEDS ORDERED: Morphine 4 MG/ML VIAL IVPUSH ONE (10:55)
[2022-02-21] MEDS ORDERED: Ondansetron 4 MG/2 ML SDV IVPUSH ONE (10:55)
[2022-02-21] MEDS ORDERED: Tamsulosin 0.4 MG Cap.ER PO ONE (11:19)
[2022-02-21] MEDS ORDERED: cefTRIAXone 1 GM in Sodium Chloride 0.9% 50 ML IV ONE (11:34)
[2022-02-21 11:56] LABS: CARBON DIOXIDE,CO2 26.7 mmol/L (21.0-32.0); POTASSIUM,K 4.4 mmol/L (3.5-5.1)
[2022-02-21] MEDS ORDERED: Magnesium Citrate Solution 296 ML Bottle PO ONE (13:46)
== END 2022-02-21 14:23 | disposition home or self-care (01) ==
LOC: MW.ED 10:37
DX: N13.2 Hydronephrosis with renal and ureteral calculous obstruction (principal); K59.00 Constipation, unspecified; E78.00 Pure hypercholesterolemia, unspecified; I10 Essential (primary) hypertension; K21.9 Gastro-esophageal reflux disease without esophagitis; E11.9 Type 2 diabetes mellitus without complications; E66.9 Obesity, unspecified; Z68.30 Body mass index [BMI] 30.0-30.9, adult; Z91.013 Allergy to seafood; Z79.899 Other long term (current) drug therapy
CPT/HCPCS: 36415; 80053; 81001; 83605; 83690; 85025; 96365; 96375; 99284; A9270; J0696; J2270; J2405; J3490; J7030

== ENCOUNTER 2024-11-09 07:32 | Emergency (ER) | payer BC | END 2024-11-09 08:05 | disposition home or self-care (01) | LOC: MW.ED 07:32 | DX: R51.9 Headache, unspecified (principal); I10 Essential (primary) hypertension; E78.00 Pure hypercholesterolemia, unspecified; E11.9 Type 2 diabetes mellitus without complications; E66.9 Obesity, unspecified; Z90.49 Acquired absence of other specified parts of digestive tract; Z91.013 Allergy to seafood; Z79.899 Other long term (current) drug therapy | CPT/HCPCS: 99283 ==